=== PATIENT | female | born 1990 | race Two or more races ===

== ENCOUNTER 2022-03-15 14:46 | Emergency (ER) | payer OTHER | END 2022-03-15 16:08 | disposition home or self-care (01) | LOC: MW.ED 14:46 | DX: K64.9 Unspecified hemorrhoids (principal) | CPT/HCPCS: 99283 ==

== ENCOUNTER 2022-05-11 12:51 | Emergency (ER) | payer OTHER ==
[2022-05-11] MEDS ORDERED: Sodium Chloride 0.9% 1,000 ML IV ONE (13:10)
[2022-05-11] MEDS ORDERED: Sodium Chloride 0.9% 2.5 ML Syringe FLUSH PRN (13:10)
[2022-05-11] MEDS ORDERED: Sodium Chloride 0.9% 10 ML Syringe FLUSH PRN (13:10)
[2022-05-11] MEDS ORDERED: Ketorolac 30 MG/ML SDV IVPUSH ONE ×2 (13:10→16:12)
[2022-05-11] MEDS ORDERED: Metoclopramide 10 MG/2 ML SDV IVPUSH ONE (13:10)
[2022-05-11] MEDS ORDERED: diphenhydrAMINE 50 MG/ML SDV IVPUSH ONE (13:10)
[2022-05-11 14:36] LABS: CARBON DIOXIDE,CO2 26.1 mmol/L (21.0-32.0); POTASSIUM,K 3.7 mmol/L (3.5-5.1)
== END 2022-05-11 16:35 | disposition home or self-care (01) ==
LOC: MW.ED 12:51
DX: R51.9 Headache, unspecified (principal); F17.210 Nicotine dependence, cigarettes, uncomplicated; R11.2 Nausea with vomiting, unspecified; R19.7 Diarrhea, unspecified; R30.0 Dysuria
CPT/HCPCS: 36415; 70450; 80053; 81025; 85025; 96361; 96374; 96375; 96376; 99284; J1200; J1885; J2765; J3490; J7030

== ENCOUNTER 2022-05-13 10:54 | Emergency (ER) | payer OTHER ==
[2022-05-13] MEDS ORDERED: LORazepam 2 MG/ML SDV IVPUSH ONE (11:16)
[2022-05-13] MEDS ORDERED: Sodium Chloride 0.9% 1,000 ML IV ONE (11:16)
[2022-05-13] MEDS ORDERED: Ketorolac 30 MG/ML SDV IVPUSH ONE (11:16)
[2022-05-13] MEDS ORDERED: Ondansetron 4 MG/2 ML SDV IVPUSH ONE (11:16)
== END 2022-05-13 13:45 | disposition home or self-care (01) ==
LOC: MW.ED 10:54
DX: G43.909 Migraine, unspecified, not intractable, without status migrainosus (principal); Z20.822 Contact with and (suspected) exposure to COVID-19
CPT/HCPCS: 87635; 96361; 96374; 96375; 99283; J1885; J2060; J2405; J7030; 99284; U0002

== ENCOUNTER 2022-05-14 09:43 | Emergency (ER) | payer OTHER ==
[2022-05-14] MEDS ORDERED: Lidocaine 1% 5 ML VIAL INJECT ONE ×2 (10:18→11:38)
[2022-05-14] MEDS ORDERED: diphenhydrAMINE 50 MG/ML SDV IVPUSH ONE (10:28)
[2022-05-14] MEDS ORDERED: Metoclopramide 10 MG/2 ML SDV IVPUSH ONE (10:28)
[2022-05-14] MEDS ORDERED: Sodium Chloride 0.9% 2.5 ML Syringe FLUSH PRN (10:28)
[2022-05-14] MEDS ORDERED: Dexamethasone 10 MG/ML SDV IVPUSH ONE (10:28)
[2022-05-14] MEDS ORDERED: Sodium Chloride 0.9% 10 ML Syringe FLUSH PRN (10:28)
[2022-05-14] MEDS ORDERED: Sodium Chloride 0.9% 1,000 ML IV ONE (10:28)
[2022-05-14] MEDS ORDERED: Ketorolac 30 MG/ML SDV IVPUSH ONE (10:28)
[2022-05-14 11:12] LABS: CARBON DIOXIDE,CO2 26.3 mmol/L (21.0-32.0); POTASSIUM,K 3.9 mmol/L (3.5-5.1)
[2022-05-14] MEDS ORDERED: Lidocaine 1% 5 ML VIAL ONE (11:33)
[2022-05-14] MEDS ORDERED: cefTRIAXone 2 GM in Sodium Chloride 0.9% 50 ML IV ONE (13:28)
[2022-05-14] MEDS ORDERED: cefTRIAXone 1 GM AdvVial IV ONE (13:42)
[2022-05-14] MEDS ORDERED: VANCOmycin 1.25 GM/250 ML 1.25 GM in Premix Bag 1 BAG IV ONE (13:45)
== END 2022-05-14 16:42 | disposition left against medical advice (07) ==
LOC: MW.ED 09:43
DX: G03.9 Meningitis, unspecified (principal); F17.210 Nicotine dependence, cigarettes, uncomplicated
CPT/HCPCS: 36415; 62270; 80053; 82945; 84157; 85025; 86592; 86788; 86789; 87070; 87205; 89050; 96361; 96365; 96366; 96367; 96368; 96375; 99284; J0133; J0696; J1100; J1200; J1885; J2765; J3370; J3490; J7030; J7050

== ENCOUNTER 2022-05-14 18:32 | Inpatient (IN) | payer OTHER ==
[2022-05-14] MEDS: Acetaminophen 325 MG Tab PO PRN (22:25)
[2022-05-14] MEDS ORDERED: ACYCLOVIR IV SCH (22:30)
[2022-05-14] MEDS ORDERED: VANCOmycin 1.25 GM/250 ML 250 ML IV ONE (22:30)
[2022-05-14] MEDS ORDERED: SODIUM CHLORIDE 0.9% IV SCH (22:30)
[2022-05-14] MEDS ORDERED: Ketorolac 30 MG/ML SDV IVPUSH ONE (22:49)
[2022-05-14] MEDS ORDERED: Ondansetron 4 MG/2 ML SDV IVPUSH PRN (22:50)
[2022-05-14] MEDS ORDERED: diphenhydrAMINE 50 MG/ML SDV IVPUSH ONE (22:50)
[2022-05-14] MEDS ORDERED: Metoclopramide 10 MG/2 ML SDV IVPUSH PRN (22:51)
[2022-05-14] MEDS ORDERED: Morphine 2 MG/ML SYRINGE IVPUSH PRN (23:33)
[2022-05-14] MEDS ORDERED: oxyCODONE 5 MG Tab PO PRN (23:33)
[2022-05-15] MEDS: ACYCLOVIR IV SCH ×3 (00:51→17:22)
[2022-05-15] MEDS: SODIUM CHLORIDE 0.9% IV SCH ×3 (00:51→17:22)
[2022-05-15] MEDS ORDERED: Sodium Chloride 0.9% 1,000 ML IV ONE (04:17)
[2022-05-15 04:55] LABS: POTASSIUM,K 3.8 mmol/L (3.5-5.1)
[2022-05-15] MEDS: Acetaminophen 325 MG Tab PO PRN (08:35)
[2022-05-15] MEDS ORDERED: cefTRIAXone 2 GM in Sodium Chloride 0.9% 50 ML IV SCH (13:00)
[2022-05-15] MEDS: cefTRIAXone 2 GM/50 ML BAG IV SCH (13:15)
[2022-05-15] MEDS ORDERED: diphenhydrAMINE 25 MG Cap PO PRN (20:06)
[2022-05-15] MEDS ORDERED: Melatonin 3 MG Tab PO PRN (20:07)
[2022-05-15] MEDS ORDERED: Ketorolac 30 MG/ML SDV IVPUSH ONE (21:16)
[2022-05-16] MEDS: SODIUM CHLORIDE 0.9% IV SCH ×3 (00:37→16:53)
[2022-05-16] MEDS: ACYCLOVIR IV SCH ×3 (00:37→16:53)
[2022-05-16] MEDS: Ibuprofen 400 MG Tab PO PRN ×2 (08:55→20:21)
[2022-05-16] MEDS ORDERED: VANCOmycin 1.5 GM/300 ML 1.5 GM in Premix Bag 1 BAG IV SCH (09:32)
[2022-05-16] MEDS: VANCOmycin 1.5 GM/300 ML 1.5 GM in Premix Bag 1 BAG IV SCH ×2 (11:52→23:00)
[2022-05-16] MEDS: cefTRIAXone 2 GM/50 ML BAG IV SCH (14:03)
[2022-05-17] MEDS: ACYCLOVIR IV SCH (00:33)
[2022-05-17] MEDS: SODIUM CHLORIDE 0.9% IV SCH (00:33)
== END 2022-05-17 14:00 | disposition home or self-care (01) | DRG 99 ==
LOC: MW.ED 18:32 → MW.MS 19:04 → MW.ZCENSUS 05-17 13:53
PROVIDERS: ADMIT Internal Medicine; ATTEND Internal Medicine
DX: G03.0 Nonpyogenic meningitis (principal)
CPT/HCPCS: 36415; 80048; 80202; 83605; 85025; 99221; 99231; 99238; 99283; A9270-GY; J0133; J0696; J1200; J1885; J2765; J3370; J7030; J7050